=== PATIENT | male | born 1940 | race Caucasian/White ===

== ENCOUNTER 2016-12-29 09:40 | Emergency (ER) | payer OTHER | END 2016-12-29 10:05 | disposition left against medical advice (07) | LOC: UCEAST 09:40 | DX: T82.594A Other mechanical complication of infusion catheter, initial encounter (principal); Z53.21 Procedure and treatment not carried out due to patient leaving prior to being seen by health care provider ==

== ENCOUNTER 2016-12-29 10:24 | Emergency (ER) | payer OTHER ==
[2016-12-29 12:15] VITALS: BP 101/56
--- NOTE | 2016-12-29 16:06 | ED ---
Kate Fernandez Alfonso scribed for Bert Ambriz MD on 12/29/16 at 1048 . Complex/Multi-Sys Presentation - HPI Summary HPI Summary: This patient is a 76 year old M [place] [facility] [place] by with a chief complaint of one central line not flushing since 0800 today. The central line was put in at [facility]. The patient rates the pain 0/10 in severity. Symptoms aggravated by nothing. Symptoms alleviated by nothing. Patient denies fever. The patient takes blood thinning medication (Coumadin). PMHx includes DM, CHF, CAD, and HTN. - History Of Current Complaint Chief Complaint: EDGeneral Time Seen by Provider: 12/29/16 10:43 Hx Obtained From: Patient, Family/Independent Marketing Consultant - Onset/Duration: Sudden Onset, Lasting Hours - 0800 Timing: Constant Aggravating Factor(s): nothing Alleviating Factor(s): nothing Associated Signs And Symptoms: Negative: Fever - Allergies/Home Medications Allergies/Adverse Reactions: Allergies Allergy/AdvReac Type Severity Reaction Status Date / Time No Known Allergies Allergy Verified 12/29/16 10:32 PMH/Surg Hx/FS Hx/Imm Hx Endocrine/Hematology History: Reports: Hx Diabetes Cardiovascular History: Reports: Hx Auto Implanted Cardiovert Defib, Hx Congestive Heart Failure, Hx Coronary Artery Disease, Hx Hypertension, Hx Pacemaker/ICD, Other Cardiovascular Problems/Disorders - LOW EF Denies: Hx Angina Respiratory History: Reports: Hx Sleep Apnea Denies: Hx Asthma, Hx Chronic Obstructive Pulmonary Disease (COPD) GI History: Reports: Other GI Disorders - (left) inguinal hernia repair History: Reports: Other Problems/Disorders - prostrate cancer Sensory History: Reports: Hx Cataracts - bilateral, Hx Contacts or Glasses Opthamlomology History: Reports: Hx Cataracts - bilateral, Hx Contacts or Glasses Neurological History: Reports: Hx Transient Ischemic Attacks (TIA) - x2 - Cancer History Cancer Type, Location and Year: 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 07/16 (right) cataract. [facility] (1959) orchiectomy. [facility] [place]2006[place] Bio ICD implant. R middle toe removal [facility] [place] [facility] 2012 stent. [facility] (2014) Bio ICD replacement Hx Anesthesia Reactions: No Infectious Disease History: No Infectious Disease History: Denies: Traveled Outside the [place] in Last 30 Days - Family History Known Family History: Positive: Hypertension - Social History Alcohol Use: Rare Alcohol Amount: 1 beer Substance Use Type: Reports: None Smoking Status (MU): Former Smoker Type: Cigarettes Length of Time of Smoking/Using Tobacco: 20 years Have You Smoked in the Last Year: No Review of Systems Negative: Fever Positive: Other - one central line not flushing All Other Systems Reviewed And Are Negative: Yes Physical Exam - Summary Physical Exam Summary: VITAL SIGNS: Reviewed. GENERAL: Patient is a well-developed and nourished male who is lying comfortable in the stretcher. Patient is not in any acute respiratory distress. No pain distress. HEAD AND FACE: No signs of trauma. No ecchymosis, hematomas or skull depressions. No sinus tenderness. EYES: PERRLA, EOMI x 2, No injected conjunctiva, no nystagmus. EARS: Hearing grossly intact. Ear canals and tympanic membranes are within normal limits. MOUTH: Oropharynx within normal limits. NECK: Supple, trachea is midline, no adenopathy, no JVD, no carotid bruit, no c- spine tenderness, neck with full ROM. CHEST: Symmetric, no tenderness at palpation. Right side chest central line. LVAD at chest. Pacemaker left side of chest. The portal is dry, clean and intact. 3 MACARENA drains with some serosanguinous discharge. LUNGS: Clear to auscultation bilaterally. No wheezing or crackles. CVS: Regular rate and rhythm, S1 and S2 present, no murmurs or gallops appreciated. ABDOMEN: Soft, non-tender. No signs of distention. No rebound no guarding, and no masses palpated. Bowel sounds are normal. EXTREMITIES: FROM in all major joints, no edema, no cyanosis or clubbing. NEURO: Alert and oriented x 3. No acute neurological deficits. Speech is normal and follows commands. SKIN: Dry and warm Triage Information Reviewed: Yes Vital Signs On Initial Exam: Initial Vitals Temp Pulse Resp Pulse Ox 97.8 F 81 16 100 12/29/16 10:28 12/29/16 10:28 12/29/16 10:28 12/29/16 10:28 Vital Signs Reviewed: Yes Diagnostics - Vital Signs Vital Signs Temp Pulse Resp Pulse Ox 12/29/16 10:28 97.8 F 81 16 100 - Laboratory Lab Statement: Any lab studies that have been ordered have been reviewed, and results considered in the medical decision making process. Complex Multi-Symp Course/Dx Assessment/Plan: This patient is a 76 year old M presenting to [facility] accompanied by with a chief complaint of one central line not flushing since 0800 today. The central line was put in at [facility]. The patient rates the pain 0/10 in severity. Symptoms aggravated by nothing. Symptoms alleviated by nothing. Patient denies fever. The patient takes blood thinning medication (Coumadin). PMHx includes DM, CHF, CAD, and HTN. The central line failed to flush with heparin. One side of the central line is working well which he can use for his infusions. He reports an appointment in 3 days at [facility], and he agrees to follow up with them. The patient is hemodynamically stable, alert and oriented x3. - Diagnoses Provider Diagnoses: Malfunction of peripheral inserted central catheter Discharge - Discharge Plan Condition: Stable Disposition: HOME Patient Education Materials: How to Care for Your Peripherally Inserted Central Catheter (ED), Peripherally Inserted Central Catheters and Midline Catheters (ED) Referrals: Pako Tomas MD [Primary Care Provider] - 3 Days Additional Instructions: RETURN TO THE EMERGENCY DEPARTMENT FOR CHANGING OR WORSENING SYMPTOMS. FOLLOW UP WITH [facility]. The documentation as recorded by the Kate jalloh Alfonso accurately reflects the service I personally performed and the decisions made by , Bert Ambriz MD.
== END 2016-12-29 12:13 | disposition home or self-care (01) ==
LOC: ED 10:24
DX: T82.594A Other mechanical complication of infusion catheter, initial encounter (principal); Y84.8 Other medical procedures as the cause of abnormal reaction of the patient, or of later complication, without mention of misadventure at the time of the procedure; Y92.9 Unspecified place or not applicable; E11.9 Type 2 diabetes mellitus without complications; Z95.810 Presence of automatic (implantable) cardiac defibrillator; I11.0 Hypertensive heart disease with heart failure; I50.9 Heart failure, unspecified; Z79.01 Long term (current) use of anticoagulants; Z87.891 Personal history of nicotine dependence
CPT/HCPCS: 99283; J1642

== ENCOUNTER → 2017-01-22 15:29 | Emergency (ER) | payer OTHER ==
[~2017-01-22 15:29] MED LIST: Lidocaine 2% EPI 1:200000 MPF* 20 ML VIAL ONE
[2017-01-22 15:47] VITALS: BP 0/0
--- NOTE | 2017-01-22 17:50 | RAD ---
Indication: Fall, head injury, patient on anticoagulants. CT of the brain was performed without IV contrast. Ventricular structures are midline. No midline shift is noted. The extra-axial spaces are unremarkable. There is no evidence of intracranial mass or hemorrhage. No other high or low density lesions are identified. Question calcified meningioma is noted in the left frontal area which was present on prior exam and is not significantly changed. IMPRESSION: No intracranial hemorrhage is noted. 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
--- NOTE | 2017-01-22 17:55 | RAD ---
Indication: Fall, neck injury. CT of the cervical spine was obtained in the axial plane. Sagittal and coronal reconstructed images were obtained. Mastoid air cells are otherwise unremarkable. Skull base demonstrates no fracture. Degenerative changes of the atlantoaxial joint is noted. C1 ring is grossly intact. The vertebral bodies appear normal in height. No evidence of compression fracture is noted. At C2-C3 there is osteophyte formation and left uncovertebral joint hypertrophy which narrows the left foramen. No fracture is noted. At C3-C4 spondylitic ridge is noted. Right uncovertebral joint hypertrophy narrows the right foramen at this level. No fractures identified. At C4-C5 right uncovertebral joint hypertrophy and right facet arthropathy is noted narrowing the right foramen. No fractures identified. At C5-C6 minimal spondylitic ridge is noted. No central foraminal stenosis is noted. No fracture identified. At C6-C7 spondylitic ridge with bilateral uncovertebral joint hypertrophy narrows both foramen. No fractures identified. At C7-T1 left facet hypertrophy is noted. No central or foraminal stenosis is noted. No fracture is identified. IMPRESSION: No fracture is identified. Multilevel degenerative disc disease is noted. There is left uncovertebral joint hypertrophy at C2-C3 narrowing the left foramen. There is right uncovertebral joint hypertrophy at C3-C4 narrowing the right intervertebral foramen. At C4-C5 right uncovertebral joint hypertrophy and right facet arthropathy results in right foraminal stenosis.
--- NOTE | 2017-01-22 17:58 | RAD ---
Indication: Fall, facial injury. Left orbital injury. CT of the facial bones was obtained in the axial plane. Sagittal and coronal reconstructed images were obtained. The mandible is intact. No evidence of fracture of the mandible is noted. The maxilla including the pterygoid plates are intact without evidence of fracture. Maxillary sinuses demonstrates no fracture. There is laceration with soft tissue edema over the left orbit. There is no underlying fracture of the left supraorbital ridge. Soft tissue swelling is noted. No intraconal or extraconal masses are noted. Extraocular muscles are intact. Zygomatic arch is intact. Temporomandibular joints are unremarkable. The visualized cervical spine is otherwise unremarkable. Multiple dental caries are noted. IMPRESSION: Soft tissue swelling over the left supraorbital ridge. No underlying fracture is noted. No other fracture of the facial bones is identified.
--- NOTE | 2017-01-23 08:45 | ED ---
Darnell Fernandez Angela, scribed for Bert Ambriz MD on 01/22/17 at 1619 . Dizziness - HPI Summary HPI Summary: This pt is a 76 y/o male accompanied by his [place] [facility] [place] s/ p light-headedness today. He reports he got up too fast from sitting down. Pt notes he was going to the kitchen when he felt light-headedness and had to put his hand on the counter to support himself. He states he felt fine so he let go but immediately fell. He fell into the corner of the wall hitting his head. Pt sustained a laceration over his left eye. Pt reports he remember everything. Per , pt did not have LOC. Pt is on Coumadin for LVAD. His INR was checked 2 days ago and it was 1.43. - History Of Current Complaint Chief Complaint: EDDizziness Stated Complaint: HEAD LAC Time Seen by Provider: 01/22/17 16:09 Hx Obtained From: Patient, Family/Heat Treater Apprentice - Onset/Duration: Resolved, Suddenly Timing: Minutes Character: Lightheaded Aggravating Factor(s): Position Change Alleviating Factor(s): Nothing Associated Signs And Symptoms: Positive: Other: - laceration over left eye.. Negative: Nausea, Vomiting, Visual Changes - Allergies/Home Medications Allergies/Adverse Reactions: Allergies Allergy/AdvReac Type Severity Reaction Status Date / Time No Known Allergies Allergy Verified 12/29/16 10:32 PMH/Surg Hx/FS Hx/Imm Hx Endocrine/Hematology History: Reports: Hx Diabetes Cardiovascular History: Reports: Hx Auto Implanted Cardiovert Defib, Hx Congestive Heart Failure, Hx Coronary Artery Disease, Hx Hypertension, Hx Pacemaker/ICD, Other Cardiovascular Problems/Disorders - LOW EF Denies: Hx Angina Respiratory History: Reports: Hx Sleep Apnea Denies: Hx Asthma, Hx Chronic Obstructive Pulmonary Disease (COPD) GI History: Reports: Other GI Disorders - (left) inguinal hernia repair History: Reports: Other Problems/Disorders - prostrate cancer Sensory History: Reports: Hx Cataracts - bilateral, Hx Contacts or Glasses Opthamlomology History: Reports: Hx Cataracts - bilateral, Hx Contacts or Glasses Neurological History: Reports: Hx Transient Ischemic Attacks (TIA) - x2 - Cancer History Cancer Type, Location and Year: 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 07/16 (right) cataract. [facility] [place]1959) [place] [facility] [place] [facility] [place]2006[place] Bio ICD implant. R middle toe [place] [facility] [place] [facility] 2012 stent. [facility] (2013) Bio ICD replacement Hx Anesthesia Reactions: No Infectious Disease History: No Infectious Disease History: Denies: Traveled Outside the [place] in Last 30 Days - Family History Known Family History: Positive: Hypertension - Social History Alcohol Use: Rare Alcohol Amount: 1 beer Substance Use Type: Reports: None Smoking Status (MU): Former Smoker Type: Cigarettes Length of Time of Smoking/Using Tobacco: 20 years Have You Smoked in the Last Year: No Review of Systems Positive: Other - fall. Negative: Fever, Chills Eyes: Negative ENT: Negative Cardiovascular: Negative Negative: Shortness Of Breath, Cough Positive: Other - laceration over left eye Neurological: Other - light-headedness Negative: Syncope - or LOC All Other Systems Reviewed And Are Negative: Yes Physical Exam - Summary Physical Exam Summary: VITAL SIGNS: Reviewed. GENERAL: Patient is a well-developed and nourished male who is lying comfortable in the stretcher. Patient is not in any acute respiratory distress. HEAD AND FACE: No ecchymosis, hematomas or skull depressions. No sinus tenderness. There is laceration over left eye. EYES: PERRLA, EOMI x 2, No injected conjunctiva, no nystagmus. EARS: Hearing grossly intact. Ear canals and tympanic membranes are within normal limits. MOUTH: Oropharynx within normal limits. NECK: Supple, trachea is midline, no adenopathy, no JVD, no carotid bruit, no c- spine tenderness, neck with full ROM. CHEST: Symmetric, no tenderness at palpation LUNGS: Clear to auscultation bilaterally. No wheezing or crackles. CVS: Regular rate and rhythm, S1 and S2 present, no murmurs or gallops appreciated. ABDOMEN: Soft, non-tender. No signs of distention. No rebound no guarding, and no masses palpated. Bowel sounds are normal. EXTREMITIES: FROM in all major joints, no edema, no cyanosis or clubbing. NEURO: Alert and oriented x 3. No acute neurological deficits. Speech is normal and follows commands. SKIN: Dry and warm. There is laceration over left eye. Triage Information Reviewed: Yes Vital Signs On Initial Exam: Initial Vitals Temp Pulse Resp BP Pulse Ox 97.7 F 91 18 0/0 99 01/22/17 15:35 01/22/17 15:35 01/22/17 15:35 01/22/17 15:35 01/22/17 15:35 Vital Signs Reviewed: Yes Procedures - Laceration/Wound Repair 1 Location: head Description: Linear - 2.2 cm laceration Anesthesia: 2.0%, Lido, Epi Laceration/Wound Explored: clean, no foreign body removed Number of Sutures: 9 Diagnostics - Vital Signs Vital Signs Temp Pulse Resp BP Pulse Ox 01/22/17 15:35 97.7 F 91 18 0/0 99 - Laboratory Lab Statement: Any lab studies that have been ordered have been reviewed, and results considered in the medical decision making process. - CT Maxillofacial CT CT Interpretation: Positive (See Comments) - IMPRESSION: There is soft tissue swelling over the left supraorbital ridge. No underlying fracture is noted. No other fracture of the facial bones is identified. ED physician has reviewed this radiology report and agrees. CT Interpretation Completed By: Radiologist Brain CT CT Interpretation: No Acute Changes - IMPRESSION: No intracranial hemorrhage is noted. 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 ED physician has reviewed this radiology report and agrees. CT Interpretation Completed By: Radiologist Cervical spine CT CT Interpretation: No Acute Changes - IMPRESSION: No fracture is identified. Multilevel degenerative disc disease is noted. There is left uncovertebral joint hypertrophy at C2-C3 narrowing the left foramen. There is right uncovertebral joint hypertrophy at C3-C4 narrowing the right intervertebral foramen. At C4-C5 right uncovertebral joint hypertrophy and right facet arthropathy results in right foraminal stenosis. ED physician has reviewed this radiology report and agrees. CT Interpretation Completed By: Radiologist Dizzsatya Course/Dx - Course Assessment/Plan: This pt is a 76 y/o male accompanied by his presenting [place] [facility] s/p light-headedness today. He reports he got up too fast from sitting down. Pt notes he was going to the kitchen when he felt light- headedness and had to put his hand on the counter to support himself. He states he felt fine so he let go but immediately fell. He fell into the corner of the wall hitting his head. Pt sustained a laceration over his left eye. Pt reports he remember everything. Per , pt did not have LOC. Pt is on Coumadin for LVAD. His INR was checked 2 days ago and it was 1.43. Maxillofacial CT shows there is soft tissue swelling over the left supraorbital ridge. No underlying fracture is noted. No other fracture of the facial bones is identified. Brain CT reveals no intracranial hemorrhage is noted. 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 Cervical spine CT shows no fracture is identified. Multilevel degenerative disc disease is noted. There is left uncovertebral joint hypertrophy at C2-C3 narrowing the left foramen. There is right uncovertebral joint hypertrophy at C3-C4 narrowing the right intervertebral foramen. At C4-C5 right uncovertebral joint hypertrophy and right facet arthropathy results in right foraminal stenosis. Since there is no fracture or dislocation I proceeded to suture the laceration, see procedure note. At this point the pt is hemodynamically stable, alert and oriented x3 and has no complains. Therefore, the pt will be discharged home with follow up from his PCP. He was instructed to be careful when getting up from a sitting down position. He will return to the ED or urgent care, for suture removal in 10 days. - Diagnoses Provider Diagnoses: Accidental fall, Head contusion, Laceration Discharge - Discharge Plan Condition: Stable Disposition: HOME Patient Education Materials: Fall Prevention (ED), Contusion in Adults (ED), Laceration (ED), Care For Your Stitches (ED) Referrals: Pako Tomas MD [Primary Care Provider] - Additional Instructions: Please follow up with your primary care provider. RETURN TO THE ED FOR ANY WORSENING SYMPTOMS. The documentation as recorded by the Darnell jalloh Angela accurately reflects the service I personally performed and the decisions made by me, Bert Ambriz MD.
== END | disposition home or self-care (01) ==
LOC: ED 15:29
DX: S05.32XA Ocular laceration without prolapse or loss of intraocular tissue, left eye, initial encounter (principal); S00.93XA Contusion of unspecified part of head, initial encounter; Z87.891 Personal history of nicotine dependence; R42 Dizziness and giddiness; W19.XXXA Unspecified fall, initial encounter; Y93.9 Activity, unspecified; Y92.9 Unspecified place or not applicable
CPT/HCPCS: 70450; 70486; 72125; 99282

== ENCOUNTER 2018-09-21 21:05 | Emergency (ER) | payer MEDICARE ==
[2018-09-21] MEDS ORDERED: NS 0.9% 1000 ML** 1,000 ML IV ONE (21:09)
--- NOTE | 2018-09-21 21:14 | ED ---
Neurological HPI - HPI Summary HPI Summary: LEVEL 5 CAVEAT: HPI LIMITED DUE TO PATIENT CONDITION, EXTREMIS Patient is a 77 y/o M presenting to ED with AMS onset approx 1930. Per EMS: Patient's has been with him, patient was working on the computer, and suddenly stopped answering her questions. He is normally A&O. Patient is pale, vomiting, diaphoretic, non-verbal. He has LVAD. BP was 189 systolic en route. ED provider met EMS and patient immediately upon arrival. - History of Current Complaint Stated Complaint: CODE TONEY PER EMS Hx Obtained From: EMS Hx From Patient Unobtainable Due To: Extremis Onset/Duration: Sudden Onset, Started hours ago Timing: Constant Character: Other: - AMS Associated Signs and Symptoms: Positive: Nausea/Vomiting, Diaphoresis - Allergy/Home Medications Allergies/Adverse Reactions: Allergies Allergy/AdvReac Type Severity Reaction Status Date / Time No Known Allergies Allergy Verified 12/29/16 10:32 PMH/Surg Hx/FS Hx/Imm Hx Previously Healthy: No Endocrine/Hematology History: Reports: Hx Diabetes Cardiovascular History: Reports: Hx Auto Implanted Cardiovert Defib, Hx Congestive Heart Failure, Hx Coronary Artery Disease, Hx Hypertension, Hx Pacemaker/ICD, Other Cardiovascular Problems/Disorders - LOW EF Denies: Hx Angina Respiratory History: Reports: Hx Sleep Apnea Denies: Hx Asthma, Hx Chronic Obstructive Pulmonary Disease (COPD) GI History: Reports: Other GI Disorders - (left) inguinal hernia repair History: Reports: Other Problems/Disorders - prostrate cancer Sensory History: Reports: Hx Cataracts - bilateral, Hx Contacts or Glasses Opthamlomology History: Reports: Hx Cataracts - bilateral, Hx Contacts or Glasses Neurological History: Reports: Hx Transient Ischemic Attacks (TIA) - x2 - Cancer History Cancer Type, Location and Year: 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 07/16 (right) cataract. [facility] (9) orchiectomy. [facility] [place] 2001 Prostatectomy. [facility] (2006?) Bio ICD implant. R middle toe removal [facility] [place] 2015. [facility] 2012 stent. [facility] (2013) Bio ICD replacement Hx Anesthesia Reactions: No - Family History Known Family History: Positive: Hypertension - Social History Occupation: Retired Lives: With Family Alcohol Use: Rare Alcohol Amount: 1 beer Hx Substance Use: No Substance Use Type: Reports: None Hx Tobacco Use: Yes Smoking Status (MU): Former Smoker Type: Cigarettes Length of Time of Smoking/Using Tobacco: 20 years Have You Smoked in the Last Year: No Review of Systems - ROS Summary Review of Systems Summary: LEVEL 5 CAVEAT: ROS LIMITED DUE TO PATIENT CONDITION, EXTREMIS Positive: Skin Diaphoresis Positive: Vomiting Skin: Other - pos: pale Neurological: Other - pos: AMS/non-verbal All Other Systems Reviewed And Are Negative: No Physical Exam - Summary Physical Exam Summary: Appearance: The patient is well-nourished in no acute distress and in no acute pain. Skin: The skin is warm and dry and skin color reflects adequate perfusion. HEENT: The head is normocephalic and atraumatic. The pupils are equal and reactive. The conjunctivae are clear and without drainage. Nares are patent and without drainage. Mouth reveals moist mucous membranes and the throat is without erythema and exudate. The external ears are intact. The ear canals are patent and without drainage. The tympanic membranes are intact. Neck: the neck is supple with full range of motion and non-tender. There are no carotid bruits. There is no neck vein distension. Respiratory: Chest is non-tender. Lungs are clear to auscultation and breath sounds are symmetrical and equal. Cardiovascular: Heart is regular rate and rhythm. There is no murmur or rub auscultated. There is no peripheral edema and pulses are symmetrical and equal. Abdomen: The abdomen is soft and non-tender. There are normal bowel sounds heard in all four quadrants and there is no organomegaly palpated. Musculoskeletal: There is no back tenderness noted. Extremities are non-tender with full range of motion. There is good capillary refill. There is no peripheral edema or calf tenderness elicited. Neurological: Patient is alert and oriented to person, place and time. The patient has symmetrical motor strength in all four extremities. Cranial nerves are grossly intact. Deep tendon reflexes are symmetrical and equal in all four extremities. Psychiatric: The patient has an appropriate affect and does not exhibit any anxiety or depression. Triage Information Reviewed: Yes Vital Signs Reviewed: Yes Diagnostics - Laboratory Result Diagrams: 09/21/18 21:28 09/21/18 21:28 Lab Statement: Any lab studies that have been ordered have been reviewed, and results considered in the medical decision making process. - CT BRAIN CT CT Interpretation Completed By: Radiologist Summary of CT Findings: IMPRESSION: 1. Large acute hemorrhage centered at the anterior left frontal lobe measures 6.9 x 4.0 cm. Adjacent edema. 2. Intraventricular extension involving all ventricles with mild to moderate obstructive hydrocephalus. 3. Midline shift to the right measures 12 mm. Left to right subfalcine. herniation. ED provider has reviewed this report. - EKG 2150 Cardiac Rate: NL - 77 bpm EKG Rhythm: Sinus Rhythm Summary of EKG Findings: PVCs, diffuse non-specific T-wave inversions NIH Scale - NIH Scale Level of Consciousness: Responds to Minor Stimulation Ask Patient the Month and His/Her Age: Neither Correct/Aphasic Ask Pt to Open/Close Eyes and Special Police/Release Non-Paretic Hand: Neither Correctly Best Gaze (Only Horizontal Eye Movement): Normal Visual Field Testing: No Visual Loss Facial Paresis-Pt to Smile & Close Eyes or Grimace Symmetry: Normal/Symmetrical Motor Function - Right Arm: Effort Against [place] Motor Function - Left Arm: No Drift-Holds 10 Seconds Motor Function - Right Leg: No Effort Against [place] Motor Function - Left Leg: Effort Against [place] Limb Ataxia-Must be out of Proportion to Weakness Present: Absent Sensory (Use Pinprick to Test Arms/Legs/Trunk/Face): Normal Best Language (Describe Picture, Name Items): Mute/Global Aphasia Dysarthria (Read Several Words): Unintelligible or Mute Extinction and Inattention: Inattention Total Score: 18 Re-Evaluation - Re-Evaluation 1 Re-Evaluation Time: 21:18 Change: Unchanged Comment: ED provider at bedside. 2 Re-Evaluation Time: 21:42 Change: Unchanged Comment: ED provider in room, present now. Family feels patient would want surgery. Course/Dx - Course Course Of Treatment: Mr. Cueto was noted to be in his normal state of health a couple of hours prior to presentation. He began to vomit and became aphasic. He was poorly cooperative to evaluation for EMS with normal vitals. On my initial exam his NIH stroke scale was 18 and his GCS was 10-11. He was completely aphasic and he was sent directly to the CT scanner. He was noted to have an acute frontal left-sided bleed. He has an LVAD in place and is on Coumadin. The last INR I have is from a month ago and was 2. FFP and K central was ordered for him. I spoke with Dr. Davenport who felt that if he were a surgical candidate he should be taken to the operating room. Patient was wearing a bracelet that said no chest compressions no pulse no problem. I noted in the computer that he had many medical problems of a severe nature. I contacted the to find out if there were any advanced directives. She wanted me to contact that at LVAD center at [facility]. Back she called almost immediately after I get off the phone with her and reported that he was a full code. She only lives 5 minutes away from the hospital and arrived shortly after got off the phone with them. She feels that the patient would want to have surgery although we spoke frankly about his possibilities. I recontacted Dr. Davenport who is on his way in to evaluate the patient and speak with the . His blood pressures been stable since he arrived. He is managing his airway fine and at this point I am holding intubation until we have a better sense of his direction. - Diagnoses Provider Diagnoses: Intracranial hemorrhage During the Visit The Following Alert/Code Occurred: Luz Ma - called at 2057 from the field. - Physician Notifications Discussed Care Of Patient With: Chau Davenport - neuro Time Discussed With Above Provider: 21:23 Instructed by Provider To: Other - If hes a surgical candidate, take him to operating room. Consulted again at 2155: Will see patient in ED. - Critical Care Time Critical Care Time: 30-74 min Discharge - Sign-Out/Discharge Documenting (check all that apply): Patient Departure Patient Received Moderate/Deep Sedation with Procedure: No - Discharge Plan Condition: Guarded Disposition: ADMITTED TO [facility] Referrals: Pako Tomas MD [Primary Care Provider] - - Billing Disposition and Condition Condition: GUARDED Disposition: Admitted to [facility] - Attestation Statements Document Initiated by Scribe: Yes Documenting Scribe: Stevie Major Provider For Whom Scribe is Documenting (Include Credential): Dr. Yunior Schneider MD Scribe Attestation: Stevie Fernandez, scribed for Dr. Yunior Schneider MD on 09/21/18 at 2211. Scribe Documentation Reviewed: Yes Provider Attestation: The documentation as recorded by the staribe, Stevie Major accurately reflects the service I personally performed and the decisions made by me, Dr. Yunior Schneider MD Status of Staribe Document: Viewed Consult Consult: 6143: Spoke to patient's on-call ASSISTANT GUEST SERVICES MANAGER for LVAD Is unaware of a DNR or MOLST form.
[2018-09-21 21:36] LABS: ABS Basophils 0.1 10^3/ul (0-0.2); ABS Eosinophils 0.2 10^3/ul (0-0.6); ABS Lymphocytes 1.5 10^3/ul (1.0-4.8); ABS Monocytes 1.2 10^3/ul (0-0.8); ABS Neutrophils 8.1 10^3/ul (1.5-7.7); Eosinophil % 1.5 %; Hematocrit 34 % (42-52); Hemoglobin 11.5 g/dL (14.0-18.0); Lymphocyte % 13.6 %; Mean Corpuscular HGB Conc 34 g/dL (31-36); Mean Corpuscular Hemoglobin 30 pg (27-31); Mean Corpuscular Volume 87 fL (80-94); Mean Platelet Volume 7.6 fL (7.4-10.4); Platelet Count 252 10^3/uL (150-450); Red Blood Count 3.89 10^6 /uL (4.18-5.48); Red Cell Distribution Width 18 % (10-15)
[2018-09-21 21:48] LABS: Activated Partial Thrombo Time 35.3 seconds (26.0-38.0); INR 2.38 (0.82-1.09)
[2018-09-21 21:53] LABS: Albumin 4.3 g/dL (3.2-5.2); Albumin/Globulin Ratio 1.3 (1-3); BUN/Creatinine Ratio 30.9 (8-20); Calcium 9.6 mg/dL (8.6-10.3); EGFR African American 112.4 (>60); EGFR Non-African American 92.9 (>60); Globulin 3.2 g/dL (2-4); HDL Cholesterol 24.9 mg/dL; Total Bilirubin 0.9 mg/dL (0.2-1.0); Total Protein 7.5 g/dL (6.4-8.9)
[2018-09-21] MEDS ORDERED: Phytonadione IV (Adult)* 10 MG/ML 1 ML AMP IV ONE (22:36)
[2018-09-21] MEDS ORDERED: Ondansetron INJ* 2 MG/ML VIAL IV ONE (22:42)
[2018-09-21] MEDS ORDERED: PHYTONADIONE 10 MG IVPB - ED ONCE IV ONE ×2 (22:45)
[2018-09-21] MEDS ORDERED: levETIRAcetam 1000MG IVPREMIX* 1,000 MG/100 ML BAG IVPB ONE (23:27)
--- NOTE | 2018-09-21 23:33 | ED ---
Progress - Progress Note Progress Note: Patient is received as a sign out from Dr. Schneider to Dr. Laboy at 219909/21/18 pending disposition of this patient. Patient has a right lobe intracranial hemorrhage, patient has Hx of CHF and has LVAD present. Dr. Davenport to evaluate. After Dr. Davenport had evaluated the patient, he recommends that the patient be transferred. 2314 - Transfer was discussed with family, the patient will be transferred to [facility] in [place]. 2335 - Initial report was given to transfer center. 2347 - Patient's case was discussed with Dr. Aubrey Olmstead, neurosurgery, from [facility]. Dr. Olmstead accepts the patient for ED to ED transfer. Re-Evaluation - Re-Evaluation First Eval Re-Evaluation Time: 23:14 Comment: 2314 - Transfer was discussed, the patient will be transferred to [facility] in [place]. Second Eval Re-Evaluation Time: 23:35 Comment: 2335 - Initial report was given to transfer center. 1 Re-Evaluation Time: 21:18 Change: Unchanged Comment: ED provider at bedside. 2 Re-Evaluation Time: 21:42 Change: Unchanged Comment: ED provider in room, present now. Family feels patient would want surgery. Course/Dx - Course Course Of Treatment: Patient is received as a sign out from Dr. Schneider to Dr. Laboy at 219909/21/18 pending disposition of this patient. Patient has a right lobe intracranial hemorrhage, patient has Hx of CHF and has LVAD present. Dr. Davenport to evaluate. After Dr. Davenport had evaluated the patient, he recommends that the patient be transferred. 2314 - Transfer was discussed with family, the patient will be transferred to [facility] in [place]. 2335 - Initial report was given to transfer center. 2347 - Patient's case was discussed with Dr. Aubrey Olmstead, neurosurgery, from [facility]. Dr. Olmstead accepts the patient for ED to ED transfer. - Diagnoses Provider Diagnoses: Intracranial hemorrhage - Provider Notifications Discussed Care Of Patient With: Aubrey Olmstead Time Discussed With Above Provider: 23:47 Instructed by Provider To: Other - 2347 - Patient's case was discussed with Dr. Aubrey Olmstead, neurosurgery, from [facility]. Dr. Olmstead accepts the patient for ED to ED transfer. Discharge - Sign-Out/Discharge Documenting (check all that apply): Patient Departure - transfer - Discharge Plan Condition: Guarded Disposition: TRANS HIGHER LVL OF CARE FAC Referrals: Pako Tomas MD [Primary Care Provider] - - Billing Disposition and Condition Condition: GUARDED Disposition: Trans Higher Lvl of Care Fac - Attestation Statements Document Initiated by Staribe: Yes Documenting Scribe: CORIE GREEN Provider For Whom Jasmin is Documenting (Include Credential): CHELSIE LABOY MD Scribe Attestation: CORIE Fernandez, scribed for CHELSIE LABOY MD on 09/22/18 at 0045. Scribe Documentation Reviewed: Yes Provider Attestation: The documentation as recorded by the CORIE jalloh accurately reflects the service I personally performed and the decisions made by me, CHELSIE LABOY MD Status of Scribe Document: Viewed
[2018-09-22 02:00] VITALS: BP 128/90
== END 2018-09-22 01:20 | disposition short-term general hospital (02) ==
LOC: ED 21:05
DX: I62.9 Nontraumatic intracranial hemorrhage, unspecified (principal); R11.10 Vomiting, unspecified; Z87.891 Personal history of nicotine dependence; R11.2 Nausea with vomiting, unspecified; I50.9 Heart failure, unspecified; E11.9 Type 2 diabetes mellitus without complications; Z95.810 Presence of automatic (implantable) cardiac defibrillator; Z85.46 Personal history of malignant neoplasm of prostate
CPT/HCPCS: 36415; 36430; 70450; 71045; 80053; 80061; 83605; 84484; 85025; 85610; 85730; 86850; 86900; 86901; 86927; 93005; 96361; 96374; 96375; 99285; C9132; J1953; J2405; J3430; P9017